=== PATIENT | male | born 1990 | race Caucasian/White ===

== ENCOUNTER 2017-07-01 02:44 | Emergency (ER) | payer MEDICAID ==
[~2017-07-01] VITALS: Ht 182.9 cm; Wt 86.4 kg
[~2017-07-01 02:44] MED LIST: NOCURR
[2017-07-01 02:45] VITALS: BP 148/90
== END 2017-07-01 03:21 | disposition left against medical advice (07) ==
LOC: EMS 02:45
DX: S61.012A Laceration without foreign body of left thumb without damage to nail, initial encounter (principal); F11.90 Opioid use, unspecified, uncomplicated; F19.90 Other psychoactive substance use, unspecified, uncomplicated; Z53.21 Procedure and treatment not carried out due to patient leaving prior to being seen by health care provider; W45.8XXA Other foreign body or object entering through skin, initial encounter; Y93.89 Activity, other specified; Y92.89 Other specified places as the place of occurrence of the external cause; Y99.8 Other external cause status

== ENCOUNTER 2020-12-04 13:03 | Emergency (ER) | payer MEDICAID, OTHER ==
[~2020-12-04] VITALS: Ht 177.8 cm; Wt 85.0 kg
[2020-12-04] MEDS ORDERED: FAMOTIDINE 10 MG/ML 2 ML VIAL IVP ONE (13:15)
[2020-12-04] MEDS ORDERED: ONDANSETRON HCL 4 MG/2 ML VIAL IVP ONE (13:15)
[2020-12-04] MEDS ORDERED: MAGNESIUM SULFATE 2 GM, MVI, ADULT NO.1 WITH VIT K 10 ML, THIAMINE 100 MG, FOLIC ACID 1... IV ONE ×5 (13:15)
[2020-12-04 13:29] VITALS: BP 149/90
[2020-12-04 13:31] LABS: BASOPHILS % (AUTO) 0.2 % (0.0-2.0); EOSINOPHILS % (AUTO) 0.1 % (1.0-6.0); HEMATOCRIT 41.3 % (41-53); LYMPHOCYTES # (AUTO) 1.7 K/uL (1.0-4.8); LYMPHOCYTES % (AUTO) 23.5 % (22.0-44.0); MEAN CORPUSCULAR HEMOGLOBIN 33.9 pg (26.0-34.0); MEAN CORPUSCULAR VOLUME 100 fL (80-100); MONOCYTES # (AUTO) 0.5 K/uL (0.1-1.0); MONOCYTES % (AUTO) 7.2 % (2.0-9.0); NEUTROPHILS # (AUTO) 4.9 K/uL (1.8-7.7); PLATELET COUNT (AUTO) 199 K/uL (150-450); RED BLOOD CELL COUNT(AUTO) 4.14 MIL/uL (4.50-5.90); RED CELL DISTRIBUTION WIDTH 14.1 % (11.5-14.5)
[2020-12-04 13:41] LABS: ANION GAP 13 mmol/L (8-16); CALCIUM, TOTAL 7.6 mg/dL (8.8-10.5); CARBON DIOXIDE 22 mmol/L (22-29); CHLORIDE 106 mmol/L (98-107); CREATININE 0.71 mg/dL (0.60-1.30); GLOMERULAR FILTR. RATE CALC > 60 mL/min (>60); GLUCOSE,RANDOM 132 mg/dL (70-110); POTASSIUM 3.5 mmol/L (3.5-5.1); SODIUM SERUM 141 mmol/L (136-145); UREA NITROGEN, BLOOD 5 mg/dL (7-18)
[2020-12-04 13:44] LABS: INR 1.1 (0.9-1.1); PROTHROMBIN TIME 11.2 SEC (9.4-11.6)
[2020-12-04 13:47] LABS: ALANINE AMINOTRANSFERASE 271 U/L (12-78); ALBUMIN 3.8 g/dL (3.4-5.0); ALKALINE PHOSPHATASE 103 U/L (46-116); ASPARTATE AMINOTRANSFERASE 246 U/L (15-37); BILIRUBIN,TOTAL 0.2 mg/dL (0.1-1.0); LIPASE 214 U/L (73-393); TOTAL PROTEIN, SERUM 7.5 g/dL (6.4-8.2)
[2020-12-04 14:04] LABS: B-TYPE NATRIURETIC PEPTIDE < 5 pg/mL (0-100)
== END 2020-12-04 14:41 | disposition left against medical advice (07) ==
LOC: EMS 13:07
DX: F10.129 Alcohol abuse with intoxication, unspecified (principal); Z53.21 Procedure and treatment not carried out due to patient leaving prior to being seen by health care provider
CPT/HCPCS: 36415; 71045; 80053; 83690; 83880; 84484; 85025; 85610; 85730; 93005; G0480; J2405; J3411; J3475; J3490 ×3; J7030; 96365; 96366; 96375; 99285

== ENCOUNTER 2020-12-05 16:50 | Emergency (ER) | payer OTHER ==
[~2020-12-05] VITALS: Ht 177.8 cm; Wt 82.0 kg
[2020-12-05 16:51] VITALS: BP 128/98
== END 2020-12-05 20:07 | disposition left against medical advice (07) ==
LOC: EMS 16:52
DX: R44.0 Auditory hallucinations (principal); Z53.21 Procedure and treatment not carried out due to patient leaving prior to being seen by health care provider

== ENCOUNTER 2022-03-02 10:16 | Inpatient (IN) | payer MEDICAID ==
[~2022-03-02] VITALS: Ht 175.3 cm; Wt 87.5 kg
[2022-03-02] MEDS ORDERED: HALOPERIDOL 5 MG TABLET PO PRN (11:00)
[2022-03-02] MEDS ORDERED: ZOLPIDEM TARTRATE 10 MG TABLET PO PRN (11:00)
[2022-03-02 16:32] VITALS: BP 149/106
[2022-03-02] MEDS ORDERED: PNEUMOCOCCAL VACCINE POLYVALENT 0.5 ML VIAL [PPSV23] IM. ONE (16:45)
[2022-03-02] MEDS: RisperiDONE 1 MG TABLET PO SCH (20:40)
[2022-03-02 20:54] VITALS: BP 100/65
[2022-03-03] MEDS: SERTRALINE HCL 50 MG TABLET PO SCH (08:31)
[2022-03-03 08:45] VITALS: BP 107/74
[2022-03-03 09:34] LABS: BASOPHILS % (AUTO) 0.3 % (0.0-2.0); EOSINOPHILS % (AUTO) 0.7 % (1.0-6.0); HEMATOCRIT 44.7 % (41-53); HEMOGLOBIN 15.3 g/dL (13.5-17.5); LYMPHOCYTES % (AUTO) 20.1 % (22.0-44.0); MEAN CORPUSCULAR HEMOGLOBIN 32.9 pg (26.0-34.0); MEAN CORPUSCULAR HGB CONC 34.1 G/dL (31.0-37.0); MEAN CORPUSCULAR VOLUME 96 fL (80-100); MONOCYTES # (AUTO) 0.6 K/uL (0.1-1.0); MONOCYTES % (AUTO) 6.1 % (2.0-9.0); NEUTROPHILS # (AUTO) 7.1 K/uL (1.8-7.7); NEUTROPHILS % (AUTO) 72.8 % (40.0-70.0); PLATELET COUNT (AUTO) 326 K/uL (150-450); RED BLOOD CELL COUNT(AUTO) 4.64 MIL/uL (4.50-5.90); RED CELL DISTRIBUTION WIDTH 14.1 % (11.5-14.5)
[2022-03-03 09:49] LABS: BILIRUBIN,URINE NEGATIVE (NEGATIVE); GLUCOSE, URINE (UA) NEGATIVE (NEGATIVE); KETONES,URINE NEGATIVE (NEGATIVE); LEUKOCYTE ESTERASE ,URINE NEGATIVE (NEGATIVE); NITRATE,URINE NEGATIVE (NEGATIVE); OCCULT BLOOD,URINE NEGATIVE (NEGATIVE); PROTEIN,URINE NEGATIVE (NEGATIVE); SPECIFIC GRAVITIY, URINE 1.019 (1.003-1.030); UROBILINOGEN,URINE <=1.0 mg/dL (<=1.0)
[2022-03-03 09:52] LABS: HEMOGLOBIN A1C 5.5 % (3.8-5.6)
[2022-03-03 09:52] LABS: APPEARANCE,URINE CLOUDY (CLEAR)
[2022-03-03 09:54] LABS: AMPHET/METH SCREEN,URINE NEGATIVE (NEGATIVE); BARBITURATE SCREEN, URINE POSITIVE (NEGATIVE); BENZODIAZEPINES SCREEN,URINE NEGATIVE (NEGATIVE); CANNABINOID SCREEN,URINE NEGATIVE (NEGATIVE); COCAINE SCREEN,URINE NEGATIVE (NEGATIVE); METHADONE SCREEN, URINE NEGATIVE (NEGATIVE); OPIATE SCREEN,URINE NEGATIVE (NEGATIVE)
[2022-03-03 09:59] LABS: PHENCYCLIDINE SCREEN,URINE NEGATIVE (NEGATIVE)
[2022-03-03 10:16] LABS: ALANINE AMINOTRANSFERASE 64 U/L (12-78); ALBUMIN 3.9 g/dL (3.4-5.0); ALKALINE PHOSPHATASE 69 U/L (46-116); ANION GAP 11 mmol/L (8-16); ASPARTATE AMINOTRANSFERASE 36 U/L (15-37); BILIRUBIN,TOTAL 0.3 mg/dL (0.1-1.0); CALCIUM, TOTAL 9.7 mg/dL (8.8-10.5); CARBON DIOXIDE 24 mmol/L (22-29); CHLORIDE 106 mmol/L (98-107); CHOL/HDL RATIO 3.1 (4.2-7.3); CHOLESTEROL 133 mg/dL (131-200); CREATININE 0.88 mg/dL (0.60-1.30); FREE T4 (FREE THYROXINE) 1.29 ng/dL (0.76-1.46); GLUCOSE,RANDOM 94 mg/dL (70-110); HDL CHOLESTEROL 43 mg/dL (40-60); LDL CHOL (CALC.) 78 mg/dL (0-130); POTASSIUM 3.8 mmol/L (3.5-5.1); SODIUM SERUM 141 mmol/L (136-145); THYROID STIMULATING HORMONE 1.82 uIU/mL (0.36-3.74); TOTAL PROTEIN, SERUM 8.3 g/dL (6.4-8.2); TRIGLYCERIDES 60 mg/dL (15-150); UREA NITROGEN, BLOOD 9 mg/dL (7-18)
[2022-03-03 10:17] LABS: GLOMERULAR FILTR. RATE CALC > 60 mL/min (>60)
[2022-03-03 10:22] LABS: AMORPHOUS SEDIMENT,UR Moderate /LPF (None Seen); BACTERIA,URINE Few /HPF (None Seen); RBC,URINE None Seen /HPF (0-2); SQUAMOUS EPITHELIAL CELL,UR Few /LPF (None Seen); WBC,URINE None Seen /HPF (0-5)
[2022-03-03] MEDS ORDERED: NICOTINE 14 MG/24 HOUR PATCH TD PRN (17:15)
[2022-03-03] MEDS ORDERED: MAGNESIUM HYDROXIDE SUSPENSION 30 ML UDCUP PO PRN (17:15)
[2022-03-03] MEDS ORDERED: CloNIDine HCL 0.1 MG TABLET PO PRN (17:15)
[2022-03-03] MEDS ORDERED: IBUPROFEN 400 MG TABLET PO PRN (17:15)
[2022-03-03] MEDS ORDERED: DOCUSATE SODIUM 100 MG CAPSULE PO PRN (17:15)
[2022-03-03] MEDS ORDERED: ALBUTEROL SULFATE HFA 90 MCG/PUFF 8 GM INHALER IH PRN (17:15)
[2022-03-03] MEDS ORDERED: LOPERAMIDE HCL 2 MG CAPSULE PO PRN (17:15)
[2022-03-03] MEDS ORDERED: ACETAMINOPHEN 325 MG TABLET PO PRN (17:15)
[2022-03-03] MEDS ORDERED: GuaiFENesin/D-METHORPHAN [SUGAR-FREE] 200-20MG/10 ML SYRUP UDCUP PO PRN (17:15)
[2022-03-03] MEDS ORDERED: ONDANSETRON HCL 4 MG TABLET PO PRN (17:15)
[2022-03-03] MEDS ORDERED: PETROLATUM,WHITE 28 GM JELLY TP PRN (17:15)
[2022-03-03] MEDS ORDERED: MAG HYDROX/AL HYDROX/SIMETH ES 30 ML SUSPENSION UDCUP PO PRN (17:15)
[2022-03-03 20:26] VITALS: BP 107/74
[2022-03-03] MEDS: RisperiDONE 1 MG TABLET PO SCH (20:41)
[2022-03-03] MEDS: LORazepam 2 MG TABLET PO PRN (20:41)
[2022-03-04] MEDS: SERTRALINE HCL 50 MG TABLET PO SCH (08:18)
[2022-03-04 10:33] VITALS: BP 109/80
[2022-03-04 20:15] VITALS: BP 106/79
[2022-03-04] MEDS: RisperiDONE 1 MG TABLET PO SCH (20:21)
[2022-03-04] MEDS: LORazepam 2 MG TABLET PO PRN (20:21)
[2022-03-05] MEDS: LORazepam 2 MG TABLET PO PRN (08:27)
[2022-03-05] MEDS: SERTRALINE HCL 50 MG TABLET PO SCH (08:27)
[2022-03-05 08:38] VITALS: BP 105/78
[2022-03-05] MEDS ORDERED: SERT-439 PO (09:05)
[2022-03-05] MEDS ORDERED: RISP1TAB98 PO (09:05)
== END 2022-03-05 12:55 | disposition home or self-care (01) | DRG 750 ==
LOC: B3A 15:55
PROVIDERS: ADMIT Psychiatry & Neurology Psychiatry; ATTEND Psychiatry & Neurology Psychiatry
DX: F25.1 Schizoaffective disorder, depressive type (principal); R45.851 Suicidal ideations; Y90.9 Presence of alcohol in blood, level not specified; F10.10 Alcohol abuse, uncomplicated; Z59.00 Homelessness unspecified; Z91.51 Personal history of suicidal behavior; Z79.899 Other long term (current) drug therapy
CPT/HCPCS: 80053; 80061; 80307; 81001; 83036; 84436; 84439; 84443; 85025; 86592; G0480

== ENCOUNTER 2023-09-15 12:55 | Inpatient (IN) | payer MEDICAID, OTHER ==
[~2023-09-15] VITALS: Ht 165.1 cm; Wt 77.1 kg
[~2023-09-15 12:55] MED LIST changes: -NOCURR; +RISP-31 PO; +SERT-439 PO
[2023-09-15 14:11] LABS: BASOPHILS % (AUTO) 0.4 % (0.0-2.0); EOSINOPHILS % (AUTO) 0 % (1.0-6.0); HEMATOCRIT 49.2 % (41-53); HEMOGLOBIN 16.8 g/dL (13.5-17.5); LYMPHOCYTES # (AUTO) 2.4 K/uL (1.0-4.8); LYMPHOCYTES % (AUTO) 34.1 % (22.0-44.0); MEAN CORPUSCULAR HEMOGLOBIN 33.3 pg (26.0-34.0); MEAN CORPUSCULAR HGB CONC 34.1 G/dL (31.0-37.0); MEAN CORPUSCULAR VOLUME 98 fL (80-100); MONOCYTES # (AUTO) 0.4 K/uL (0.1-1.0); MONOCYTES % (AUTO) 5.7 % (2.0-9.0); NEUTROPHILS # (AUTO) 4.2 K/uL (1.8-7.7); NEUTROPHILS % (AUTO) 59.8 % (40.0-70.0); PLATELET COUNT (AUTO) 363 K/uL (150-450); RED BLOOD CELL COUNT(AUTO) 5.04 MIL/uL (4.50-5.90); RED CELL DISTRIBUTION WIDTH 14.4 % (11.5-14.5)
[2023-09-15 14:16] LABS: ANION GAP 9 mmol/L (8-16); CALCIUM, TOTAL 8.7 mg/dL (8.8-10.5); CARBON DIOXIDE 29 mmol/L (22-29); CHLORIDE 104 mmol/L (98-107); CREATININE 0.78 mg/dL (0.60-1.30); GLOMERULAR FILTR. RATE CALC > 60 mL/min (>60); GLUCOSE,RANDOM 113 mg/dL (70-110); POTASSIUM 4.3 mmol/L (3.5-5.1); SODIUM SERUM 142 mmol/L (136-145); UREA NITROGEN, BLOOD 6 mg/dL (7-18)
[2023-09-15 14:22] LABS: ALANINE AMINOTRANSFERASE 124 U/L (12-78); ALBUMIN 4.2 g/dL (3.4-5.0); ALKALINE PHOSPHATASE 81 U/L (46-116); ASPARTATE AMINOTRANSFERASE 90 U/L (15-37); BILIRUBIN,TOTAL 0.2 mg/dL (0.1-1.0); TOTAL PROTEIN, SERUM 9.7 g/dL (6.4-8.2)
[2023-09-15 14:41] LABS: ALCOHOL, BLOOD (SERUM) 363 mg/dL (0-10)
[2023-09-15] MEDS ORDERED: QUET50TA24 PO (15:27)
[2023-09-15] MEDS: HALOPERIDOL 5 MG TABLET PO PRN (16:38)
[2023-09-15] MEDS: LORazepam 2 MG TABLET PO PRN (16:38)
[2023-09-15] MEDS: OLANZapine 10 MG TABLET PO ONE (16:38)
[2023-09-15 16:49] LABS: APPEARANCE,URINE CLEAR (CLEAR); BILIRUBIN,URINE NEGATIVE (NEGATIVE); COLOR,URINE LIGHT YELLOW (YELLOW); GLUCOSE, URINE (UA) NEGATIVE (NEGATIVE); KETONES,URINE NEGATIVE (NEGATIVE); LEUKOCYTE ESTERASE ,URINE NEGATIVE (NEGATIVE); NITRATE,URINE NEGATIVE (NEGATIVE); OCCULT BLOOD,URINE NEGATIVE (NEGATIVE); PROTEIN,URINE TRACE mg/dL (NEGATIVE); SPECIFIC GRAVITIY, URINE 1.012 (1.003-1.030); UROBILINOGEN,URINE <=1.0 mg/dL (<=1.0)
[2023-09-15 16:56] LABS: ALCOHOL, URINE DRUG SCREEN POSITIVE (NEGATIVE); AMPHET/METH SCREEN,URINE NEGATIVE (NEGATIVE); BARBITURATE SCREEN, URINE NEGATIVE (NEGATIVE); BENZODIAZEPINES SCREEN,URINE NEGATIVE (NEGATIVE); CANNABINOID SCREEN,URINE NEGATIVE (NEGATIVE); COCAINE SCREEN,URINE POSITIVE (NEGATIVE); METHADONE SCREEN, URINE NEGATIVE (NEGATIVE); OPIATE SCREEN,URINE NEGATIVE (NEGATIVE); PHENCYCLIDINE SCREEN,URINE NEGATIVE (NEGATIVE)
[2023-09-15 19:10] LABS: COVID AG,FIA SOURCE NASAL SWAB
[2023-09-15 19:29] LABS: SARS-COV2 (COVID) ANTIGEN,FIA Negative (Negative)
[2023-09-16 14:00] VITALS: BP 145/70; PULSE 90; RESP 18; TEMP 97.7; O2SAT 98
[2023-09-16 20:45] VITALS: BP 113/67; PULSE 179; RESP 18; TEMP 99.1; O2SAT 96
[2023-09-16] MEDS: ZOLPIDEM TARTRATE 10 MG TABLET PO PRN (21:24)
[2023-09-17 08:08] VITALS: BP 113/81; PULSE 100; RESP 17; TEMP 98; O2SAT 94
[2023-09-17] MEDS: DIVALPROEX SODIUM 500 MG DR TABLET PO SCH (11:36)
[2023-09-17] MEDS: QUEtiapine FUMARATE 25 MG TABLET PO SCH (11:36)
[2023-09-17 20:23] VITALS: BP 109/66; PULSE 68; TEMP 97.7; O2SAT 96
[2023-09-18 08:23] VITALS: BP 112/84; PULSE 77; RESP 17; TEMP 97; O2SAT 96
[2023-09-19 00:40] VITALS: BP 117/90; PULSE 71; RESP 18; TEMP 98.8; O2SAT 99
[2023-09-19 08:42] VITALS: BP 101/72; PULSE 78; RESP 17; TEMP 98; O2SAT 96
[2023-09-19] MEDS ORDERED: QUET50TA PO (11:23)
[2023-09-19] MEDS ORDERED: DIVA-112 PO (11:23)
== END 2023-09-19 12:32 | disposition home or self-care (01) | DRG 750 ==
LOC: EMS 12:55 → B3A 09-16 11:45
PROVIDERS: ADMIT Psychiatry & Neurology Child & Adolescent Psychiatry; ATTEND Psychiatry & Neurology Child & Adolescent Psychiatry
DX: F25.1 Schizoaffective disorder, depressive type (principal); F10.229 Alcohol dependence with intoxication, unspecified; F14.90 Cocaine use, unspecified, uncomplicated
CPT/HCPCS: 80053; 80307; 81003; 85025; G0480

== ENCOUNTER 2024-02-21 18:15 | Inpatient (IN) | payer MEDICAID, OTHER ==
[~2024-02-21] VITALS: Ht 188 cm; Wt 90.5 kg
[~2024-02-21 18:15] MED LIST changes: +DIVA-112 PO; +QUET50TA PO; -RISP-31 PO; -SERT-439 PO
[2024-02-21 18:52] LABS: COVID AG,FIA SOURCE NASAL SWAB
[2024-02-21 19:05] LABS: GLUCOMETER DEV NAME(LOC) ERT.5; GLUCOSE,POINT OF CARE 128 MG/DL (70-110)
[2024-02-21 19:07] LABS: BASOPHILS % (AUTO) 0.4 % (0.0-2.0); EOSINOPHILS % (AUTO) 1.4 % (1.0-6.0); HEMATOCRIT 45.4 % (41-53); HEMOGLOBIN 15.4 g/dL (13.5-17.5); LYMPHOCYTES # (AUTO) 2.9 K/uL (1.0-4.8); LYMPHOCYTES % (AUTO) 50.8 % (22.0-44.0); MEAN CORPUSCULAR HEMOGLOBIN 33.8 pg (26.0-34.0); MEAN CORPUSCULAR HGB CONC 33.9 G/dL (31.0-37.0); MEAN CORPUSCULAR VOLUME 100 fL (80-100); MONOCYTES # (AUTO) 0.4 K/uL (0.1-1.0); MONOCYTES % (AUTO) 7.6 % (2.0-9.0); NEUTROPHILS # (AUTO) 2.3 K/uL (1.8-7.7); NEUTROPHILS % (AUTO) 39.8 % (40.0-70.0); PLATELET COUNT (AUTO) 289 K/uL (150-450); RED BLOOD CELL COUNT(AUTO) 4.55 MIL/uL (4.50-5.90); RED CELL DISTRIBUTION WIDTH 14.2 % (11.5-14.5); WHITE BLOOD COUNT (AUTO) 5.8 K/uL (4.5-11.0)
[2024-02-21 19:16] LABS: SARS-COV2 (COVID) ANTIGEN,FIA Negative (Negative)
[2024-02-21 19:16] LABS: ANION GAP 13 mmol/L (8-16); CALCIUM, TOTAL 8.3 mg/dL (8.8-10.5); CARBON DIOXIDE 24 mmol/L (22-29); CHLORIDE 102 mmol/L (98-107); CREATININE 0.95 mg/dL (0.60-1.30); GLOMERULAR FILTR. RATE CALC > 60 mL/min (>60); GLUCOSE,RANDOM 121 mg/dL (70-110); POTASSIUM 3.6 mmol/L (3.5-5.1); SODIUM SERUM 139 mmol/L (136-145); UREA NITROGEN, BLOOD 7 mg/dL (7-18)
[2024-02-21 19:33] LABS: ALCOHOL, BLOOD (SERUM) 413 mg/dL (0-10)
[2024-02-21] MEDS: THIAMINE 100 MG TABLET PO ONE (20:02)
[2024-02-21 20:32] LABS: PH,URINE DRUG SCREEN 5.5 (5.0-8.0)
[2024-02-21 20:39] LABS: AMPHET/METH SCREEN,URINE NEGATIVE (NEGATIVE); BARBITURATE SCREEN, URINE NEGATIVE (NEGATIVE); BENZODIAZEPINES SCREEN,URINE NEGATIVE (NEGATIVE); CANNABINOID SCREEN,URINE NEGATIVE (NEGATIVE); COCAINE SCREEN,URINE NEGATIVE (NEGATIVE); METHADONE SCREEN, URINE NEGATIVE (NEGATIVE); OPIATE SCREEN,URINE NEGATIVE (NEGATIVE); PHENCYCLIDINE SCREEN,URINE NEGATIVE (NEGATIVE)
[2024-02-21 20:40] LABS: ALCOHOL, URINE DRUG SCREEN POSITIVE (NEGATIVE)
[2024-02-21] MEDS ORDERED: ACETAMINOPHEN 325 MG TABLET PO PRN (21:30)
[2024-02-21] MEDS ORDERED: ONDANSETRON HCL 4 MG/2 ML VIAL IVP PRN (21:30)
[2024-02-21] MEDS ORDERED: LORazepam 2 MG TABLET PO PRN (22:00)
[2024-02-21] MEDS: 1: MAGNESIUM SULFATE 2 GM, MVI, ADULT NO.1 WITH VIT K 10 ML, THIAMINE 100 MG, FOLIC ACID IV SCH (23:58)
[2024-02-21] MEDS: HEPARIN SODIUM,PORCINE 5,000 UNITS/ML VIAL SQ SCH (23:59)
[2024-02-22 06:02] LABS: ANION GAP 11 mmol/L (8-16); CALCIUM, TOTAL 8.3 mg/dL (8.8-10.5); CARBON DIOXIDE 27 mmol/L (22-29); CHLORIDE 105 mmol/L (98-107); CREATININE 0.93 mg/dL (0.60-1.30); GLOMERULAR FILTR. RATE CALC > 60 mL/min (>60); GLUCOSE,RANDOM 81 mg/dL (70-110); POTASSIUM 3.9 mmol/L (3.5-5.1); SODIUM SERUM 143 mmol/L (136-145); UREA NITROGEN, BLOOD 6 mg/dL (7-18)
[2024-02-22 06:05] LABS: BASOPHILS % (AUTO) 0.5 % (0.0-2.0); EOSINOPHILS % (AUTO) 1.5 % (1.0-6.0); HEMATOCRIT 48.5 % (41-53); HEMOGLOBIN 16.5 g/dL (13.5-17.5); LYMPHOCYTES # (AUTO) 3.9 K/uL (1.0-4.8); LYMPHOCYTES % (AUTO) 63.6 % (22.0-44.0); MEAN CORPUSCULAR HEMOGLOBIN 34.2 pg (26.0-34.0); MEAN CORPUSCULAR HGB CONC 34.1 G/dL (31.0-37.0); MEAN CORPUSCULAR VOLUME 100 fL (80-100); MONOCYTES # (AUTO) 0.3 K/uL (0.1-1.0); MONOCYTES % (AUTO) 5.6 % (2.0-9.0); NEUTROPHILS # (AUTO) 1.8 K/uL (1.8-7.7); NEUTROPHILS % (AUTO) 28.8 % (40.0-70.0); PLATELET COUNT (AUTO) 265 K/uL (150-450); RED BLOOD CELL COUNT(AUTO) 4.84 MIL/uL (4.50-5.90); RED CELL DISTRIBUTION WIDTH 14.2 % (11.5-14.5); WHITE BLOOD COUNT (AUTO) 6.2 K/uL (4.5-11.0)
[2024-02-22] MEDS: LORazepam 2 MG TABLET PO SCH (08:47)
[2024-02-22] MEDS: DOCUSATE SODIUM 100 MG CAPSULE PO SCH (08:48)
[2024-02-22 10:14] VITALS: BP 137/81; PULSE 93; RESP 18; TEMP 98.2; O2SAT 95
[2024-02-22 15:27] VITALS: BP 140/83; PULSE 86; RESP 19; TEMP 97.7; O2SAT 95
[2024-02-22 19:38] VITALS: BP 140/94; PULSE 79; RESP 20; TEMP 98.3; O2SAT 94
[2024-02-22 23:46] VITALS: BP 131/83; PULSE 62; RESP 18; TEMP 97.9; O2SAT 96
[2024-02-23] MEDS ORDERED: SODIUM CHLORIDE 0.9% 1,000 ML ONE (03:56)
[2024-02-23 05:16] VITALS: BP 144/89; PULSE 58; RESP 18; TEMP 98; O2SAT 98
[2024-02-23] MEDS: LORazepam 2 MG TABLET PO PRN (06:34)
[2024-02-23 07:45] VITALS: BP 155/107; PULSE 70; RESP 20; TEMP 98.2; O2SAT 95
[2024-02-23 11:46] VITALS: BP 133/85; PULSE 81; RESP 20; TEMP 98.3; O2SAT 95
[2024-02-23 15:52] VITALS: BP 95/62; PULSE 74; RESP 20; TEMP 97.7; O2SAT 97
[2024-02-23 19:32] VITALS: BP 132/78; PULSE 72; RESP 20; TEMP 97.9; O2SAT 98
[2024-02-24] MEDS ORDERED: SODIUM CHLORIDE 0.9% 1,000 ML ONE (00:54)
[2024-02-24 06:20] VITALS: BP 123/78; PULSE 61; RESP 18; TEMP 97; O2SAT 98
[2024-02-24] MEDS ORDERED: LORazepam 1 MG TABLET PO PRN (07:00)
[2024-02-24 07:50] VITALS: BP 129/91; PULSE 58; RESP 20; TEMP 98; O2SAT 96
[2024-02-24] MEDS: LORazepam 1 MG TABLET PO SCH (08:25)
[2024-02-24 16:00] VITALS: BP 124/78; PULSE 120; RESP 20; TEMP 98; O2SAT 95
[2024-02-24 19:15] VITALS: BP 116/79; PULSE 70; RESP 18; TEMP 98.1; O2SAT 96
[2024-02-25 01:06] LABS: HEPATITIS C AB (EIA) Non Reactive (Non Reactive)
[2024-02-25 03:45] VITALS: BP 106/66; PULSE 54; RESP 18; TEMP 97.8; O2SAT 100
[2024-02-25] MEDS ORDERED: LORazepam 1 MG TABLET PO PRN (07:00)
[2024-02-25 08:07] VITALS: BP 119/73; PULSE 72; RESP 20; TEMP 97.7; O2SAT 99
== END 2024-02-25 14:30 | disposition home or self-care (01) | DRG 52 ==
LOC: EMS 18:15 → EDH 21:28 → 5S 02-22 09:50 → 5N 02-22 22:12 → 4E 02-23 17:10
PROVIDERS: ADMIT Internal Medicine; ATTEND Internal Medicine
PROC: GZ58ZZZ Individual Psychotherapy, Cognitive-Behavioral (ICD-10-PCS; principal; 2024-02-23)
DX: G92.9 Unspecified toxic encephalopathy (principal); F20.0 Paranoid schizophrenia; F10.239 Alcohol dependence with withdrawal, unspecified; F15.10 Other stimulant abuse, uncomplicated; I10 Essential (primary) hypertension; Z20.822 Contact with and (suspected) exposure to COVID-19; R41.0 Disorientation, unspecified; F17.200 Nicotine dependence, unspecified, uncomplicated; Y90.9 Presence of alcohol in blood, level not specified; F10.229 Alcohol dependence with intoxication, unspecified
CPT/HCPCS: 80048; 80307; 82962; 83735; 85025; 86803; 87340; 99285; G0378; G0480; J1644; J3411; J3475; J3490; J7030